=== PATIENT | male | born 1950 | race Caucasian/White ===

== ENCOUNTER 2017-03-13 05:37 | Observation (INO) | payer OTHER ==
[2017-02-24 13:57] VITALS: BP 123/78
[~2017-03-13] VITALS: Ht 177.8 cm; Wt 75.6 kg
[~2017-03-13 05:37] MED LIST: ASPI-496 PO; ATOR20TA9 PO; CHOL10003 PO; FLUT9.9S NAS; HYDR12.53 PO; LOSA50TA6 PO; METO25TA9 PO; MULT-464 PO; NITR0.4T SL; PRAS10TA4 PO; TRAM50TA2 PO
[2017-03-13] MEDS ORDERED: LACTATED RINGERS 1,000 ML IV SCH (06:26)
[2017-03-13] MEDS ORDERED: LIDOCAINE 1%, 2ML SQ PRN (06:30)
[2017-03-13] MEDS ORDERED: TRAZ50TA18 PO (06:31)
[2017-03-13] MEDS ORDERED: TRIA10.8 NAS (06:31)
[2017-03-13] MEDS ORDERED: FENTANYL PF 250 MCG/5ML ONE (07:03)
[2017-03-13] MEDS ORDERED: MIDAZOLAM 1 MG/ML, 2ML ONE (07:03)
[2017-03-13] MEDS ORDERED: CEFAZOLIN 1,000 MG ONE (07:32)
[2017-03-13] MEDS ORDERED: PROPOFOL 10 MG/ML, 20ML ONE (07:32)
[2017-03-13] MEDS ORDERED: ROCURONIUM 10 MG/ML ONE (07:32)
[2017-03-13] MEDS ORDERED: SUCCINYLCHOLINE 20 MG/ML, 10ML ONE (07:32)
[2017-03-13] MEDS ORDERED: DEXAMETHASONE 4 MG/ML, 1ML ONE (07:32)
[2017-03-13] MEDS ORDERED: OXYcodone 5 MG/5 ML ORAL.SOL UDC PO PRN (08:00)
[2017-03-13] MEDS ORDERED: hydrALAzine 20 MG/ML, 1ML IV PRN (08:00)
[2017-03-13] MEDS ORDERED: ACETAMINOPHEN 325 MG TABLET PO PRN (08:00)
[2017-03-13] MEDS ORDERED: ONDANSETRON 2MG/ML, 2ML IVPush PRN (08:00)
[2017-03-13] MEDS ORDERED: METOCLOPRAMIDE 5 MG/ML, 2ML IV PRN (08:00)
[2017-03-13] MEDS ORDERED: LABETALOL 5MG/ML, 20ML IV PRN (08:00)
[2017-03-13] MEDS ORDERED: OXYcodone 5 MG/5 ML ORAL.SOL UDC ONE (10:09)
[2017-03-13] MEDS ORDERED: FENTANYL PF 100 MCG/2ML ONE (10:09)
[2017-03-13] MEDS ORDERED: ACETAMINOPHEN 650 MG/20.3 ML UDC ONE (10:09)
[2017-03-13] MEDS: FENTANYL PF 100 MCG/2ML IV PRN ×2 (10:13→10:25)
[2017-03-13] MEDS ORDERED: HYDROmorphone 1 MG/ML, 1ML ONE (10:38)
[2017-03-13] MEDS: HYDROmorphone 1 MG/ML, 1ML IV PRN ×4 (10:39→11:00)
[2017-03-13 11:28] LABS: BLOOD UREA NITROGEN 17 mg/dL (7-18)
[2017-03-13] MEDS ORDERED: ONDANSETRON 2MG/ML, 2ML IV PRN (12:30)
[2017-03-13] MEDS ORDERED: HYDROmorphone 1 MG/ML, 1ML IV PRN (12:30)
[2017-03-13] MEDS ORDERED: OXYcodone/APAP 5/325MG TABLET PO PRN (12:30)
[2017-03-13] MEDS ORDERED: OPIUM/BELLADONNA SUPP.RECT 16.2-60 MG PR PRN (12:30)
[2017-03-13] MEDS: D5%-0.45NACL+KCL 20MEQ 1,000 ML IV SCH ×2 (13:01→14:10)
[2017-03-13 13:17] LABS: BLOOD UREA NITROGEN 17 mg/dL (7-18)
[2017-03-13 16:30] VITALS: BP 113/73
[2017-03-13 20:11] VITALS: BP 93/58
[2017-03-13 20:44] VITALS: BP 103/61
[2017-03-13] MEDS: FLUTICASONE NASAL SPRAY 16GM NAS SCH (20:49)
[2017-03-13] MEDS ORDERED: LOSARTAN 25MG TABLET PO SCH (21:00)
[2017-03-13] MEDS ORDERED: TRAZODONE 50MG TABLET PO SCH (21:00)
[2017-03-13] MEDS ORDERED: SODIUM CHLORIDE FLUSH 10ML SYR IVF SCH (21:00)
[2017-03-13] MEDS ORDERED: METOPROLOL SUCCINATE 25 MG TAB.ER.24H PO SCH (21:00)
[2017-03-14 00:55] VITALS: BP 108/61
[2017-03-14 03:57] VITALS: BP 103/62
[2017-03-14 05:25] LABS: BLOOD UREA NITROGEN 12 mg/dL (7-18)
[2017-03-14 07:59] VITALS: BP 127/67
[2017-03-14] MEDS ORDERED: HYDROCHLOROTHIAZIDE 12.5 MG CAPSULE PO SCH (09:00)
[2017-03-14] MEDS: FLUTICASONE NASAL SPRAY 16GM NAS SCH (09:45)
== END 2017-03-14 12:17 | disposition home or self-care (01) ==
LOC: OUT 05:37 → 4NOR 11:51 → OUT 15:36 → DCLOUNGE 03-14 11:30
PROVIDERS: ADMIT Urology; ATTEND Urology
DX: N40.0 Benign prostatic hyperplasia without lower urinary tract symptoms (principal)
CPT/HCPCS: 36415; 52648; 80048; 82040; 85014; 85018; G0378; J0330; J0690; J1100; J1170; J2250; J2704; J3010; J3480; J3490; J7120

== ENCOUNTER → 2018-08-21 | Outpatient (CLI) | payer OTHER ==
[~2018-08-21] MED LIST changes: +ATOR20TA37 PO; -ATOR20TA9 PO; +HYDR12.517 PO; -HYDR12.53 PO; -LOSA50TA6 PO; +LOSA50TA7 PO; +METO-282 PO; -METO25TA9 PO; +TRAZ50TA66 PO; +TRIA10.8 NAS
== END | disposition home or self-care (01) ==
LOC: CVU 15:53
PROVIDERS: ATTEND Orthopaedic Surgery
DX: I35.1 Nonrheumatic aortic (valve) insufficiency (principal); I25.10 Atherosclerotic heart disease of native coronary artery without angina pectoris; I10 Essential (primary) hypertension; E78.5 Hyperlipidemia, unspecified; Z72.0 Tobacco use
CPT/HCPCS: 93306